=== PATIENT | male | born 1965 | race Hispanic/Latino ===

== ENCOUNTER 2018-11-23 19:13 | Emergency (ER) | payer MEDICAID, SELFPAY ==
--- NOTE | 2018-11-23 | DI.RAD.S_ITS ---
PROCEDURE: XR FEMUR RT 1V INDICATIONS: FALL FROM 30 FEET TECHNIQUE: One views of the femur were acquired. COMPARISON: None. FINDINGS: Bones: Segmented fracture of the proximal right femoral shaft noted. Segmented fracture fragment is displaced anteriorly. Soft tissues: No suspicious soft tissue calcifications or masses. IMPRESSION: Proximal right femoral shaft fracture. Dictated by: Kassy Villalobos MD, PhD on 11/23/2018 at 19:53 Approved by: Kassy Villalobos MD, PhD on 11/23/2018 at 19:54
--- NOTE | 2018-11-23 | DI.RAD.S_ITS ---
PROCEDURE: XR CHEST 1V INDICATIONS: FALL TECHNIQUE: One view of the chest was acquired. COMPARISON: None. FINDINGS: Surgical changes and devices: None. Lungs and pleura: Lungs are clear. No pleural effusions or pneumothorax. Mediastinum: Mediastinal contours appear normal. Heart size is normal. Bones and chest wall: No suspicious bony lesions. Overlying soft tissues appear unremarkable. IMPRESSION: No acute cardiopulmonary disease process. Dictated by: Kassy Villalobos MD, PhD on 11/23/2018 at 19:54 Approved by: Kassy Villalobos MD, PhD on 11/23/2018 at 19:54
--- NOTE | 2018-11-23 | DI.RAD.S_ITS ---
PROCEDURE: XR PELVIS 1-2V INDICATIONS: FALL TECHNIQUE: One view(s) of the pelvis acquired. COMPARISON: None. FINDINGS: Bones: Fracture of the proximal right femoral shaft. Soft tissues: Visualized bowel gas pattern is normal. No suspicious soft tissue calcifications. IMPRESSION: Proximal right femur fracture. Dictated by: Kassy Villalobos MD, PhD on 11/23/2018 at 19:54 Approved by: Kassy Villalobos MD, PhD on 11/23/2018 at 19:55
[2018-11-23] MEDS: fentaNYL 100 MCG/2 ML INJ IV ×2 (19:19→19:52)
[2018-11-23] MEDS: ONDANSETRON 4 MG/2 ML INJ IV (19:19)
--- NOTE | 2018-11-23 19:21 | ED.TRAUMA ---
HPI - Trauma General Chief Complaint: Trauma Stated Complaint: fell 30 ft from roof, R femur fx Time Seen by Provider: 11/23/18 19:18 Source: patient and EMS Mode of arrival: EMS Limitations: language barrier History of Present Illness HPI narrative: 53-year-old male with minimal medical history, Danish speaking, presents by EMS as a modified trauma activation secondary to a fall from 30 ft with an obvious femur fracture. Though Danish-speaking he is able to communicate with EMS and denies any other injuries or pain. He had no loss of consciousness and has had no vomiting. he denies neck back chest or abdomen pain. He denies any numbness or tingling of his foot. The injury is closed and apparently isolated. At no point during evaluation has he had a systolic blood pressure less than 90. He has had no medications prior to arrival. He takes no chronic medications daily. He presents by EMS with C-spine immobilization with blankets as he has a very short thick neck, on a backboard, and cardboard leg splint. He has taken directly into trauma room to where the trauma team is waiting. MD complaint: fall and injury Onset (ago): minute(s) Loss of Consciousness: no Location - Extremities: Right: thigh Severity: severe Context: fall Associated symptoms: denies other symptoms Treatments prior to arrival: IV, oxygen, cervical collar and spinal immobilization Related Data Allergies Allergy/AdvReac Type Severity Reaction Status Date / Time No Known Drug Allergies Allergy Verified 11/23/18 19:23 Review of Systems Review of Systems ROS Unobtainable: All systems reviewed & are unremarkable except as noted in HPI and below Constitutional Denies chills, Denies fever(s), Denies lethargy and Denies weakness Eyes Denies change in vision, Denies eye discharge, Denies irritation and Denies loss of vision ENT Ears, Nose, Mouth, and Throat: Denies change in voice, Denies neck pain and Denies sore throat Cardiovascular Denies chest pain, Denies irregular heart rhythm, Denies lightheadedness, Denies palpitations, Denies dyspnea, Denies dyspnea on exertion and Denies orthopnea Respiratory Denies cough, Denies dyspnea, Denies dyspnea on exertion and Denies wheezing Gastrointestinal Gastrointestinal: Denies abdominal pain, Denies change in bowel habits, Denies diarrhea, Denies nausea and Denies vomiting Genitourinary Denies hematuria, Denies flank pain, Denies urinary incontinence and Denies urinary urgency Musculoskeletal Reports joint swelling, Reports limited range of motion and Denies neck pain Integumentary/Breasts Denies pruritus, Denies erythema, Denies rash and Denies wounds Neurologic Denies confusion, Denies loss of vision and Denies weakness Psychiatric Denies anxiety, Denies confusion, Denies depression, Denies homicidal ideation and Denies suicidal ideation Endocrine Denies palpitations Hematologic/Lymphatic Denies easy bruising Allergic/Immunologic Denies wheezing [facility] Social History Smoking Status: Never smoker Exam Narrative Exam Narrative: GENERAL: 53-year-old male appears younger than stated age, obviously in pain with deformity to right lower extremity. GCS 15, AO x3 HEAD: Mild abrasions to forehead Normocephalic. No temporal or scalp tenderness. EYES: Pupils equal round and reactive. Extraocular motions intact. No scleral icterus. No injection or drainage. ENT: Nose with minimal dried blood, no purulent drainage or septal hematoma. Throat without erythema, tonsillar hypertrophy or exudate. Uvula midline. Airway patent. NECK: Trachea midline. No JVD or lymphadenopathy. Supple, nontender, no meningeal signs. CARDIOVASCULAR: Regular rate and rhythm without murmurs, gallops, or rubs. RESPIRATORY: Clear to auscultation. Breath sounds equal bilaterally. No wheezes, rales, or rhonchi. GASTROINTESTINAL: Abdomen soft, non-tender, nondistended. No hepato-splenomegaly, or palpable masses. No guarding. EXTREMITIES: Obvious deformity to right lower extremity with significant swelling in the right thigh, external rotation. Closed, isolated, neuro intact. Sensation and cap refill intact BACK: Nontender without deformity or crepitance. No flank tenderness. NEURO: AOx3. SKIN: No rash or erythema. Initial Vital Signs Initial Vital Signs: Vital Signs Pulse Rate 80 11/23/18 20:30 Respiratory Rate 23 11/23/18 20:30 Blood Pressure 132/69 11/23/18 20:30 Pulse Oximetry 100 11/23/18 20:30 Procedures Orthopedic Splinting/Casting Injury #1: Side: right Lower Extremity Injury Location: upper leg Lower Extremity Immobilizer: posterior splint (traction splint) Post splinting neuro exam: intact Post splinting vascular exam: intact Placed by: Provider Course Orders Ordered: ED Orders 11/23/18 20:45 Urine Drug Screen, Rapid Stat Discontinued Medications Diphtheria/Tetanus/Acell Pertussis (Adacel) 0.5 ml IM .ONCE ONE Stop: 11/23/18 20:24 Last Admin: 11/23/18 20:24 Dose: 0.5 ml Fentanyl (Sublimaze) 100 mcg IV NOW ONE Stop: 11/23/18 19:20 Last Admin: 11/23/18 19:52 Dose: 100 mcg Fentanyl (Sublimaze) 100 mcg IV NOW ONE Stop: 11/23/18 20:21 Last Admin: 11/23/18 19:19 Dose: 100 mcg Hydromorphone HCl (Dilaudid) 0.5 mg IV NOW ONE Stop: 11/23/18 20:56 Last Admin: 11/23/18 21:00 Dose: 0.5 mg Tranexamic Acid 1,000 mg/ (Sodium Chloride) 100 mls @ 400 mls/hr IV NOW ONE Stop: 11/23/18 19:25 Last Infusion: 11/23/18 20:32 Dose: 0 mls/hr Admin: 11/23/18 20:16 Dose: 400 mls/hr Ondansetron HCl (Zofran) 4 mg IV NOW ONE Stop: 11/23/18 19:20 Last Admin: 11/23/18 19:19 Dose: 4 mg Consultations Consultation #1: call to local ortho, given 30ft fall, complexity of femur, patient is best served at trauma center Consultation #2: call to [facility]. Images pushed. Patient in C Collar, traction splint. Patient has been NPO since 1200. Automatic Packer Operator used to confirm medical history, meds, surgeries, MDM - Trauma Medical Records Attestation: I reviewed the patient's medical records. Lab Data Attestation: I reviewed the patient's lab results. Result diagrams: 11/23/18 19:15 11/23/18 19:15 Lab Results 11/23/18 11/23/18 11/23/18 Range/Units 19:15 19:15 19:44 WBC 22.8 H (4.5-11.0) X10^3/uL RBC 4.63 (4.5-5.9) X10^6/uL Hgb 14.5 (13.5-17.5) g/dL Hct 42.4 (41-53) % MCV 91.6 (80-100) fL MCH 31.4 (26-34) PG MCHC 34.2 (30-36) % RDW 13.2 (11.6-14.8) % Plt Count 265 (150-400) X10^3/uL Neut % (Auto) 78.1 H (50-75) % Lymph % (Auto) 16.8 L (25-40) % [place] % (Auto) 3.8 (3-14) % Eos % (Auto) 1.0 L (2-4) % Baso % (Auto) 0.3 (0-2) % Neut # (Auto) 14878 H (0205-0294) /uL Lymph # (Auto) 3800 (4837-9319) /uL [place] # (Auto) 900 (0-900) /uL Eos # (Auto) 200 (0-450) /uL Baso # (Auto) 100 (0-100) /uL Sodium 139 (137-145) mmol/L Potassium 3.1 L (3.4-5.1) mmol/L Chloride 101 (98-107) mmol/L Carbon Dioxide 26 (22-32) mmol/L BUN 20 (9-20) mg/dL Creatinine 0.90 (0.66-1.25) mg/dL Estimated GFR > 60.0 (>60) mL/min BUN/Creatinine Ratio 22.2 H (6-22) Glucose 245 H (70-100) mg/dL Calcium 8.9 (8.4-10.2) mg/dL Total Bilirubin 0.7 (0.2-1.3) mg/dL AST 72 H (17-59) IU/L ALT 53 (21-72) IU/L Alkaline Phosphatase 95 (38-126) U/L Total Creatine Kinase 548 H (55-170) U/L CK-MB (CK-2) 7.84 H (<2.37) ng/mL CK-MB (CK-2) Rel Index 1.4 L (1.5-5.0) % Troponin I < 0.012 (0.01-0.034) ng/mL Total Protein 7.0 (6.3-8.2) g/dL Albumin 4.2 (3.5-5.0) g/dL Globulin 2.8 (1.7-4.1) g/dL Albumin/Globulin Ratio 1.5 (1.0-2.8) Lipase 85 (23-300) U/L Urine Opiates Screen (Negative) Ur Oxycodone Screen (Negative) Urine Methadone Screen (Negative) Ur Barbiturates Screen (Negative) U Tricyclic Antidepress (Negative) Ur Phencyclidine Scrn (Negative) Ur Amphetamines Screen (Negative) U Methamphetamines Scrn (Negative) Ur MDMA Scrn (Ecstasy) (Negative) U Benzodiazepines Scrn (Negative) Urine Cocaine Screen (Negative) U Marijuana (THC) Screen (Negative) Ethyl Alcohol < 10 mg/dL Blood Type O Positive Antibody Screen Negative 11/23/18 Range/Units 20:45 WBC (4.5-11.0) X10^3/uL RBC (4.5-5.9) X10^6/uL Hgb (13.5-17.5) g/dL Hct (41-53) % MCV (80-100) fL MCH (26-34) PG MCHC (30-36) % RDW (11.6-14.8) % Plt Count (150-400) X10^3/uL Neut % (Auto) (50-75) % Lymph % (Auto) (25-40) % [place] % (Auto) (3-14) % Eos % (Auto) (2-4) % Baso % (Auto) (0-2) % Neut # (Auto) (3329-7398) /uL Lymph # (Auto) (6621-6620) /uL [place] # (Auto) (0-900) /uL Eos # (Auto) (0-450) /uL Baso # (Auto) (0-100) /uL Sodium (137-145) mmol/L Potassium (3.4-5.1) mmol/L Chloride (98-107) mmol/L Carbon Dioxide (22-32) mmol/L BUN (9-20) mg/dL Creatinine (0.66-1.25) mg/dL Estimated GFR (>60) mL/min BUN/Creatinine Ratio (6-22) Glucose (70-100) mg/dL Calcium (8.4-10.2) mg/dL Total Bilirubin (0.2-1.3) mg/dL AST (17-59) IU/L ALT (21-72) IU/L Alkaline Phosphatase (38-126) U/L Total Creatine Kinase (55-170) U/L CK-MB (CK-2) (<2.37) ng/mL CK-MB (CK-2) Rel Index (1.5-5.0) % Troponin I (0.01-0.034) ng/mL Total Protein (6.3-8.2) g/dL Albumin (3.5-5.0) g/dL Globulin (1.7-4.1) g/dL Albumin/Globulin Ratio (1.0-2.8) Lipase (23-300) U/L Urine Opiates Screen Negative (Negative) Ur Oxycodone Screen Negative (Negative) Urine Methadone Screen Negative (Negative) Ur Barbiturates Screen Negative (Negative) U Tricyclic Antidepress Negative (Negative) Ur Phencyclidine Scrn Negative (Negative) Ur Amphetamines Screen Negative (Negative) U Methamphetamines Scrn Negative (Negative) Ur MDMA Scrn (Ecstasy) Negative (Negative) U Benzodiazepines Scrn Negative (Negative) Urine Cocaine Screen Negative (Negative) U Marijuana (THC) Screen Negative (Negative) Ethyl Alcohol mg/dL Blood Type Antibody Screen Imaging Data CT scan - head: Radiologist's impression: PROCEDURE: CT HEAD/BRAIN WO CON INDICATIONS: trauma TECHNIQUE: Noncontrast 4.5 mm thick angled axial sections acquired from the foramen magnum to the vertex, with coronal and sagittal reformats. For radiation dose reduction, the following was used: automated exposure control, adjustment of mA and/or kV according to patient size. COMPARISON: None. FINDINGS: Image quality: Excellent. CSF spaces: Basal cisterns are patent. No extra-axial fluid collections. Ventricles are normal in size and shape. Brain: No midline shift. No intracranial masses or hemorrhage. [place]-white matter interface is normal. Skull and face: Calvarium and visualized facial bones are intact, without suspicious lesions. Sinuses: Mild mucosal thickening in the visualized right maxillary sinus. Small left maxillary sinus mucus retention cyst versus polyp is partially visualized. mastoids are clear. IMPRESSION: No acute intracranial disease process. Dictated by: Kassy Villalobos MD, PhD on 11/23/2018 at 20:08 Approved by: Kassy Villalobos MD, PhD on 11/23/2018 at 20:[address] [address] [address] Scan Report Signed Patient: Kuldeep Lyman#: [id number] : 1965Acct:[id number] Age/Sex: 53 / MDate of Service: 11/23/18 Loc: ED Accession Number: [id number] Procedure: CT cervical spine wo con Ordering Provider: Raul Gentile D.O. PROCEDURE: CT CERVICAL SPINE WO CON INDICATIONS: fall from 30ft TECHNIQUE: Noncontrast 3 mm thick sections acquired from the skull base to the T4 level. Sagittal and coronal reformats were then constructed. For radiation dose reduction, the following was used: automated exposure control, adjustment of mA and/or kV according to patient size. COMPARISON: None. FINDINGS: Image quality: Excellent. Bones: No fractures or dislocations. Visualized superior ribs are intact. Spine degenerative disease and facet arthropathy noted. Soft tissues: Prevertebral soft tissues are normal in thickness. No paravertebral hematomas. No apical pneumothoraces. IMPRESSION: No fracture. No acute osseous lesion. If there are persistent symptoms or continued clinical suspicion for pathology, then MRI should be considered for further evaluation. Dictated by: Kassy Villalobos MD, PhD on 11/23/2018 at 19:55 Approved by: Kassy Villalobos MD, PhD on 11/23/2018 at 19:[address] [address] [address] Scan Report Signed Patient: Kuldeep Lyman#: [id number] : 1965Acct:[id number] Age/Sex: 53 / MDate of Service: 11/23/18 Loc: ED Accession Number: [id number] Procedure: CT chest abd pel w con Ordering Provider: Raul Gentile D.O. PROCEDURE: CT CHEST ABD PEL W CON INDICATIONS: fall from 30ft. distracting injury TECHNIQUE: After the administration of intravenous contrast, 5 mm thick sections acquired from the lung apices to the symphysis. 2.5 mm thick coronal and sagittal reformats were acquired. Additional 7 mm thick coronal maximum intensity projection (MIP) reformats acquired through the lungs. Optional 10-minute delayed imaging may be performed from the kidneys to the bladder. For radiation dose reduction, the following was used: automated exposure control, adjustment of mA and/or kV according to patient size. COMPARISON: None. FINDINGS: Image quality: Excellent. CHEST: Lungs: No pulmonary contusions or lacerations. No acute airspace opacities. No pneumothorax or hemothorax. Central and peripheral airways appear patent and normal in caliber. Mediastinum: No mediastinal hematomas. Heart size is normal. No pericardial effusion. Thoracic aorta and pulmonary arteries demonstrate normal size and enhancement. No mediastinal or hilar adenopathy. Esophagus is normal in caliber. No hiatal hernia. Chest wall: No rib fractures. No subcutaneous emphysema. No axillary or supraclavicular adenopathy. ABDOMEN: Solid organs: Liver is normal in size and enhancement, without lacerations. Diffuse fatty infiltration the liver is noted. Rounded calcification noted in the posterior right lobe liver. Gallbladder contains small gallstones. Biliary system is non-dilated. Pancreas enhances normally, without transection. Spleen is normal in size and enhancement, without lacerations. No adrenal hematomas. Both kidneys enhance normally, without hydronephrosis or lacerations. Peritoneum and bowel: No free fluid or air. Unenhanced bowel loops demonstrate normal wall thickness and caliber. Nodes and vessels: No retroperitoneal or mesenteric adenopathy. Aorta and inferior vena cava are normal in size and enhancement. Miscellaneous: No ventral hernias. PELVIS: Genitourinary: Bladder wall thickness is normal. Miscellaneous: No inguinal hernias or adenopathy. Bones: Comminuted fracture of the proximal shaft of the right femur is noted. Hematoma in the right thigh adjacent to right femur fracture. Pelvic ring and hip joints appear intact. No vertebral compression fractures. IMPRESSION: 1. Comminuted proximal right femur fracture. 2. No solid organ laceration. 3. No pneumothorax. 3. No free intraperitoneal fluid or air. Dictated by: Kassy Villalobos MD, PhD on 11/23/2018 at 19:59 Approved by: Kassy Villalobos MD, PhD on 11/23/2018 at 20:[address] [address] XRay Report Signed Patient: Kuldeep Lyman#: [id number] : 1965Acct:[id number] Age/Sex: 53 / MDate of Service: 11/23/18 Loc: ED Accession Number: [id number] Procedure: XR chest 1V Ordering Provider: Raul Gentile D.O. PROCEDURE: XR CHEST 1V INDICATIONS: FALL TECHNIQUE: One view of the chest was acquired. COMPARISON: None. FINDINGS: Surgical changes and devices: None. Lungs and pleura: Lungs are clear. No pleural effusions or pneumothorax. Mediastinum: Mediastinal contours appear normal. Heart size is normal. Bones and chest wall: No suspicious bony lesions. Overlying soft tissues appear unremarkable. IMPRESSION: No acute cardiopulmonary disease process. Dictated by: Kassy Villalobos MD, PhD on 11/23/2018 at 19:54 Approved by: Kassy Villalobos MD, PhD on 11/23/2018 at 19:[address] [address] XRay Report Signed Patient: Kuldeep Lyman#: [id number] : 1965Acct:[id number] Age/Sex: 53 / MDate of Service: 11/23/18 Loc: ED Accession Number: [id number] Procedure: XR pelvis 1-2V Ordering Provider: Raul Gentile D.O. PROCEDURE: XR PELVIS 1-2V INDICATIONS: FALL TECHNIQUE: One view(s) of the pelvis acquired. COMPARISON: None. FINDINGS: Bones: Fracture of the proximal right femoral shaft. Soft tissues: Visualized bowel gas pattern is normal. No suspicious soft tissue calcifications. IMPRESSION: Proximal right femur fracture. Dictated by: Kassy Villalobos MD, PhD on 11/23/2018 at 19:54 Approved by: Kassy Villalobos MD, PhD on 11/23/2018 at 19:[address] [address] XRay Report Signed Patient: Kuldeep Lyman#: [id number] : 1965Acct:[id number] Age/Sex: 53 / MDate of Service: 11/23/18 Loc: ED Accession Number: [id number] Procedure: XR femur RT 1V Ordering Provider: Raul Gentile D.O. PROCEDURE: XR FEMUR RT 1V INDICATIONS: FALL FROM 30 FEET TECHNIQUE: One views of the femur were acquired. COMPARISON: None. FINDINGS: Bones: Segmented fracture of the proximal right femoral shaft noted. Segmented fracture fragment is displaced anteriorly. Soft tissues: No suspicious soft tissue calcifications or masses. IMPRESSION: Proximal right femoral shaft fracture. Dictated by: Kassy Villalobos MD, PhD on 11/23/2018 at 19:53 Approved by: Kassy Villalobos MD, PhD on 11/23/2018 at 19:54 Critical Care Time Critical Care Time: Yes Total Critical Care Time: 30 Attestation: The high probability of a clinically significant, sudden or life threatening deterioration of the [cardiovascular] system(s) required my full and direct attention, intervention and personal management. The aggregate critical care time was [30] minutes. This time is in addition to time spent performing reported procedures but includes the following: [x] Data Review and interpretation [x] Patient assessment and monitoring of vital signs [x] Documentation [x] Medication orders and management Discharge Plan Departure Patient Disposition: [facility] Clinical Impression: Trauma, Acute hypokalemia Comminuted fracture of shaft of femur Qualifiers: Encounter type: initial encounter Fracture type: closed Fracture alignment: displaced Laterality: right Qualified Code(s): S72.351A - Displaced comminuted fracture of shaft of right femur, initial encounter for closed fracture Discharge Date/Time: 11/23/18 21:30 Interventions: ED Discharge Assessment Last Done: 11/23/18 21:53
[2018-11-23 19:23] VITALS: BMI 44.1
--- NOTE | 2018-11-23 19:24 | ED_ITS ---
HPI - Trauma General Chief Complaint: Trauma Stated Complaint: fell 30 ft from roof, R femur fx Time Seen by Provider: 11/23/18 19:18 Source: patient and EMS Mode of arrival: EMS Limitations: language barrier History of Present Illness HPI narrative: 53-year-old male with minimal medical history, Algerian speaking, presents by EMS as a modified trauma activation secondary to a fall from 30 ft with an obvious femur fracture. Though Algerian-speaking he is able to communicate with EMS and denies any other injuries or pain. He had no loss of consciousness and has had no vomiting. he denies neck back chest or abdomen pain. He denies any numbness or tingling of his foot. The injury is closed and apparently isolated. At no point during evaluation has he had a systolic blood pressure less than 90. He has had no medications prior to arrival. He takes no chronic medications daily. He presents by EMS with C-spine immobilization with blankets as he has a very short thick neck, on a backboard, and cardboard leg splint. He has taken directly into trauma room to where the trauma team is waiting. MD complaint: fall and injury Onset (ago): minute(s) Loss of Consciousness: no Location - Extremities: Right: thigh Severity: severe Context: fall Associated symptoms: denies other symptoms Treatments prior to arrival: IV, oxygen, cervical collar and spinal immobilization Related Data Allergies Allergy/AdvReac Type Severity Reaction Status Date / Time No Known Drug Allergies Allergy Verified 11/23/18 19:23 Review of Systems Review of Systems ROS Unobtainable: All systems reviewed & are unremarkable except as noted in HPI and below Constitutional Denies chills, Denies fever(s), Denies lethargy and Denies weakness Eyes Denies change in vision, Denies eye discharge, Denies irritation and Denies loss of vision ENT Ears, Nose, Mouth, and Throat: Denies change in voice, Denies neck pain and D enies sore throat Cardiovascular Denies chest pain, Denies irregular heart rhythm, Denies lightheadedness, Denies palpitations, Denies dyspnea, Denies dyspnea on exertion and Denies orthopnea Respiratory Denies cough, Denies dyspnea, Denies dyspnea on exertion and Denies wheezing Gastrointestinal Gastrointestinal: Denies abdominal pain, Denies change in bowel habits, Denies diarrhea, Denies nausea and Denies vomiting Genitourinary Denies hematuria, Denies flank pain, Denies urinary incontinence and Denies urinary urgency Musculoskeletal Reports joint swelling, Reports limited range of motion and Denies neck pain Integumentary/Breasts Denies pruritus, Denies erythema, Denies rash and Denies wounds Neurologic Denies confusion, Denies loss of vision and Denies weakness Psychiatric Denies anxiety, Denies confusion, Denies depression, Denies homicidal ideation and Denies suicidal ideation Endocrine Denies palpitations Hematologic/Lymphatic Denies easy bruising Allergic/Immunologic Denies wheezing [facility] Social History Smoking Status: Never smoker Exam Narrative Exam Narrative: GENERAL: 53-year-old male appears younger than stated age, obviously in pain with deformity to right lower extremity. GCS 15, AO x3 HEAD: Mild abrasions to forehead Normocephalic. No temporal or scalp tenderness. EYES: Pupils equal round and reactive. Extraocular motions intact. No scleral icterus. No injection or drainage. ENT: Nose with minimal dried blood, no purulent drainage or septal hematoma. Throat without erythema, tonsillar hypertrophy or exudate. Uvula midline. Airway patent. NECK: Trachea midline. No JVD or lymphadenopathy. Supple, nontender, no meningeal signs. CARDIOVASCULAR: Regular rate and rhythm without murmurs, gallops, or rubs. RESPIRATORY: Clear to auscultation. Breath sounds equal bilaterally. No wheezes, rales, or rhonchi. GASTROINTESTINAL: Abdomen soft, non-tender, nondistended. No hepato- splenomegaly, or palpable masses. No guarding. EXTREMITIES: Obvious deformity to right lower extremity with significant sw elling in the right thigh, external rotation. Closed, isolated, neuro intact. Sensation and cap refill intact BACK: Nontender without deformity or crepitance. No flank tenderness. NEURO: AOx3. SKIN: No rash or erythema. Initial Vital Signs Initial Vital Signs: Vital Signs Pulse Rate 80 11/23/18 20:30 Respiratory Rate 23 11/23/18 20:30 Blood Pressure 132/69 11/23/18 20:30 Pulse Oximetry 100 11/23/18 20:30 Procedures Orthopedic Splinting/Casting Injury #1: Side: right Lower Extremity Injury Location: upper leg Lower Extremity Immobilizer: posterior splint (traction splint) Post splinting neuro exam: intact Post splinting vascular exam: intact Placed by: Provider Course Orders Ordered: ED Orders 11/23/18 20:45 Urine Drug Screen, Rapid Stat Discontinued Medications Diphtheria/Tetanus/Acell Pertussis (Adacel) 0.5 ml IM .ONCE ONE Stop: 11/23/18 20:24 Last Admin: 11/23/18 20:24 Dose: 0.5 ml Fentanyl (Sublimaze) 100 mcg IV NOW ONE Stop: 11/23/18 19:20 Last Admin: 11/23/18 19:52 Dose: 100 mcg Fentanyl (Sublimaze) 100 mcg IV NOW ONE Stop: 11/23/18 20:21 Last Admin: 11/23/18 19:19 Dose: 100 mcg Hydromorphone HCl (Dilaudid) 0.5 mg IV NOW ONE Stop: 11/23/18 20:56 Last Admin: 11/23/18 21:00 Dose: 0.5 mg Tranexamic Acid 1,000 mg/ (Sodium Chloride) 100 mls @ 400 mls/hr IV NOW ONE Stop: 11/23/18 19:25 Last Infusion: 11/23/18 20:32 Dose: 0 mls/hr Admin: 11/23/18 20:16 Dose: 400 mls/hr Ondansetron HCl (Zofran) 4 mg IV NOW ONE Stop: 11/23/18 19:20 Last Admin: 11/23/18 19:19 Dose: 4 mg Consultations Consultation #1: call to local ortho, given 30ft fall, complexity of femur, patient is best served at trauma center Consultation #2: call to [facility] [place] pushed. Patient in C Collar, traction splint. Patient has been NPO since 1200. 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 Lab Data Attestation: I reviewed the patient's lab results. Result diagrams: 11/23/18 19:15 11/23/18 19:15 Lab Results 11/23/18 11/23/18 11/23/18 Range/Units 19:15 19:15 19:44 WBC 22.8 H (4.5-11.0) X10^3/uL RBC 4.63 (4.5-5.9) X10^6/uL Hgb 14.5 (13.5-17.5) g/dL Hct 42.4 (41-53) % MCV 91.6 (80-100) fL MCH 31.4 (26-34) PG MCHC 34.2 (30-36) % RDW 13.2 (11.6-14.8) % Plt Count 265 (150-400) X10^3/uL Neut % (Auto) 78.1 H (50-75) % Lymph % (Auto) 16.8 L (25-40) % Rusk % (Auto) 3.8 (3-14) % Eos % (Auto) 1.0 L (2-4) % Baso % (Auto) 0.3 (0-2) % Neut # (Auto) 72292 H (5709-6101) /uL Lymph # (Auto) 3800 (9748-9049) /uL Rusk # (Auto) 900 (0-900) /uL Eos # (Auto) 200 (0-450) /uL Baso # (Auto) 100 (0-100) /uL Sodium 139 (137-145) mmol/L Potassium 3.1 L (3.4-5.1) mmol/L Chloride 101 (98-107) mmol/L Carbon Dioxide 26 (22-32) mmol/L BUN 20 (9-20) mg/dL Creatinine 0.90 (0.66-1.25) mg/dL Estimated GFR > 60.0 (>60) mL/min BUN/Creatinine Ratio 22.2 H (6-22) Glucose 245 H (70-100) mg/dL Calcium 8.9 (8.4-10.2) mg/dL Total Bilirubin 0.7 (0.2-1.3) mg/dL AST 72 H (17-59) IU/L ALT 53 (21-72) IU/L Alkaline Phosphatase 95 (38-126) U/L Total Creatine Kinase 548 H (55-170) U/L CK-MB (CK-2) 7.84 H (<2.37) ng/mL CK-MB (CK-2) Rel Index 1.4 L (1.5-5.0) % Troponin I < 0.012 (0.01-0.034) ng/mL Total Protein 7.0 (6.3-8.2) g/dL Albumin 4.2 (3.5-5.0) g/dL Globulin 2.8 (1.7-4.1) g/dL Albumin/Globulin Ratio 1.5 (1.0-2.8) Lipase 85 (23-300) U/L Urine Opiates Screen (Negative) Ur Oxycodone Screen (Negative) Urine Methadone Screen (Negative) Ur Barbiturates Screen (Negative) U Tricyclic Antidepress (Negative) Ur Phencyclidine Scrn (Negative) Ur Amphetamines Screen (Negative) U Methamphetamines Scrn (Negative) Ur MDMA Scrn (Ecstasy) (Negative) U Benzodiazepines Scrn (Negative) Urine Cocaine Screen (Negative) U Marijuana (THC) Screen (Negative) Ethyl Alcohol < 10 mg/dL Blood Type O Positive Antibody Screen Negative 11/23/18 Range/Units 20:45 WBC (4.5-11.0) X10^3/uL RBC (4.5-5.9) X10^6/uL Hgb (13.5-17.5) g/dL Hct (41-53) % MCV (80-100) fL MCH (26-34) PG MCHC (30-36) % RDW (11.6-14.8) % Plt Count (150-400) X10^3/uL Neut % (Auto) (50-75) % Lymph % (Auto) (25-40) % Rusk % (Auto) (3-14) % Eos % (Auto) (2-4) % Baso % (Auto) (0-2) % Neut # (Auto) (9844-7991) /uL Lymph # (Auto) (9930-9527) /uL Rusk # (Auto) (0-900) /uL Eos # (Auto) (0-450) /uL Baso # (Auto) (0-100) /uL Sodium (137-145) mmol/L Potassium (3.4-5.1) mmol/L Chloride (98-107) mmol/L Carbon Dioxide (22-32) mmol/L BUN (9-20) mg/dL Creatinine (0.66-1.25) mg/dL Estimated GFR (>60) mL/min BUN/Creatinine Ratio (6-22) Glucose (70-100) mg/dL Calcium (8.4-10.2) mg/dL Total Bilirubin (0.2-1.3) mg/dL AST (17-59) IU/L ALT (21-72) IU/L Alkaline Phosphatase (38-126) U/L Total Creatine Kinase (55-170) U/L CK-MB (CK-2) (<2.37) ng/mL CK-MB (CK-2) Rel Index (1.5-5.0) % Troponin I (0.01-0.034) ng/mL Total Protein (6.3-8.2) g/dL Albumin (3.5-5.0) g/dL Globulin (1.7-4.1) g/dL Albumin/Globulin Ratio (1.0-2.8) Lipase (23-300) U/L Urine Opiates Screen Negative (Negative) Ur Oxycodone Screen Negative (Negative) Urine Methadone Screen Negative (Negative) Ur Barbiturates Screen Negative (Negative) U Tricyclic Antidepress Negative (Negative) Ur Phencyclidine Scrn Negative (Negative) Ur Amphetamines Screen Negative (Negative) U Methamphetamines Scrn Negative (Negative) Ur MDMA Scrn (Ecstasy) Negative (Negative) U Benzodiazepines Scrn Negative (Negative) Urine Cocaine Screen Negative (Negative) U Marijuana (THC) Screen Negative (Negative) Ethyl Alcohol mg/dL Blood Type Antibody Screen Imaging Data CT scan - head: Radiologist's impression: PROCEDURE: CT HEAD/BRAIN WO CON INDICATIONS: trauma TECHNIQUE: Noncontrast 4.5 mm thick angled axial sections acquired from the foramen magnum to the vertex, with coronal and sagittal reformats. For radiation dose reduction, the following was used: automated exposure control, adjustment of mA and/or kV according to patient size. COMPARISON: None. FINDINGS: Image quality: Excellent. CSF spaces: Basal cisterns are patent. No extra-axial fluid collections. Ventricles are normal in size and shape. Brain: No midline shift. No intracranial masses or hemorrhage. Costa-white matter interface is normal. Skull and face: Calvarium and visualized facial bones are intact, without suspicious lesions. Sinuses: Mild mucosal thickening in the visualized right maxillary sinus. Small left maxillary sinus mucus retention cyst versus polyp is partially visualized. mastoids are clear. IMPRESSION: No acute intracranial disease process. Dictated by: Kassy Villalobos MD, PhD on 11/23/2018 at 20:08 Approved by: Kassy Villalobos MD, PhD on 11/23/2018 at 20:[address] [address] [address] Scan Report Signed Patient: Zee LymanR#: [id number] : 1965Acct:[id number] Age/Sex: 53 / MDate of Service: 11/23/18 Loc: ED Accession Number: [id number] Procedure: CT cervical spine wo con Ordering Provider: Raul Gentile D.O. PROCEDURE: CT CERVICAL SPINE WO CON INDICATIONS: fall from 30ft TECHNIQUE: Noncontrast 3 mm thick sections acquired from the skull base to the T4 level. Sagittal and coronal reformats were then constructed. For radiation dose reduction, the following was used: automated exposure control, adjustment of mA and/or kV according to patient size. COMPARISON: None. FINDINGS: Image quality: Excellent. Bones: No fractures or dislocations. Visualized superior ribs are intact. Spine degenerative disease and facet arthropathy noted. Soft tissues: Prevertebral soft tissues are normal in thickness. No paravertebral hematomas. No apical pneumothoraces. IMPRESSION: No fracture. No acute osseous lesion. If there are persistent symptoms or continued clinical suspicion for pathology, then MRI should be considered for further evaluation. Dictated by: Kassy Villalobos MD, PhD on 11/23/2018 at 19:55 Approved by: Kassy Villalobos MD, PhD on 11/23/2018 at 19:[address] [address] [address] Scan Report Signed Patient: Kuldeep Lyman#: [id number] : 1965Acct:[id number] Age/Sex: 53 / MDate of Service: 11/23/18 Loc: ED Accession Number: [id number] Procedure: CT chest abd pel w con Ordering Provider: Raul Gentile D.O. PROCEDURE: CT CHEST ABD PEL W CON INDICATIONS: fall from 30ft. distracting injury TECHNIQUE: After the administration of intravenous contrast, 5 mm thick sections acquired from the lung apices to the symphysis. 2.5 mm thick coronal and sagittal reformats were acquired. Additional 7 mm thick coronal maximum intensity projection (MIP) reformats acquired through the lungs. Optional 10-minute delayed imaging may be performed from the kidneys to the bladder. For radiation dose reduction, the following was used: automated exposure control, adjustment of mA and/or kV according to patient size. COMPARISON: None. FINDINGS: Image quality: Excellent. CHEST: Lungs: No pulmonary contusions or lacerations. No acute airspace opacities. No pneumothorax or hemothorax. Central and peripheral airways appear patent and normal in caliber. Mediastinum: No mediastinal hematomas. Heart size is normal. No pericardial effusion. Thoracic aorta and pulmonary arteries demonstrate normal size and enhancement. No mediastinal or hilar adenopathy. Esophagus is normal in caliber. No hiatal hernia. Chest wall: No rib fractures. No subcutaneous emphysema. No axillary or supraclavicular adenopathy. ABDOMEN: Solid organs: Liver is normal in size and enhancement, without lacerations. Diffuse fatty infiltration the liver is noted. Rounded calcification noted in the posterior right lobe liver. Gallbladder contains small gallstones. Biliary system is non-dilated. Pancreas enhances normally, without transection. Spleen is normal in size and enhancement, without lacerations. No adrenal hematomas. Both kidneys enhance n ormally, without hydronephrosis or lacerations. Peritoneum and bowel: No free fluid or air. Unenhanced bowel loops demonstrate normal wall thickness and caliber. Nodes and vessels: No retroperitoneal or mesenteric adenopathy. Aorta and inferior vena cava are normal in size and enhancement. Miscellaneous: No ventral hernias. PELVIS: Genitourinary: Bladder wall thickness is normal. Miscellaneous: No inguinal hernias or adenopathy. Bones: Comminuted fracture of the proximal shaft of the right femur is noted. Hematoma in the right thigh adjacent to right femur fracture. Pelvic ring and hip joints appear intact. No vertebral compression fractures. IMPRESSION: 1. Comminuted proximal right femur fracture. 2. No solid organ laceration. 3. No pneumothorax. 3. No free intraperitoneal fluid or air. Dictated by: Kassy Villalobos MD, PhD on 11/23/2018 at 19:59 Approved by: Kassy Villalobos MD, PhD on 11/23/2018 at 20:[address] [address] XRay Report Signed Patient: Kuldeep Lyman#: [id number] : 1965Acct:[id number] Age/Sex: 53 / MDate of Service: 11/23/18 Loc: ED Accession Number: [id number] Procedure: XR chest 1V Ordering Provider: Raul Gentile D.O. PROCEDURE: XR CHEST 1V INDICATIONS: FALL TECHNIQUE: One view of the chest was acquired. COMPARISON: None. FINDINGS: Surgical changes and devices: None. Lungs and pleura: Lungs are clear. No pleural effusions or pneumothorax. Mediastinum: Mediastinal contours appear normal. Heart size is normal. Bones and chest wall: No suspicious bony lesions. Overlying soft tissues appear unremarkable. IMPRESSION: No acute cardiopulmonary disease process. Dictated by: Kassy Villalobos MD, PhD on 11/23/2018 at 19:54 Approved by: Kassy Villalobos MD, PhD on 11/23/2018 at 19:54 [place] [address] XRay Report Signed Patient: Zee LymanR#: [id number] : 1965Acct:[id number] Age/Sex: 53 / MDate of Service: 11/23/18 Loc: ED Accession Number: [id number] Procedure: XR pelvis 1-2V Ordering Provider: Raul Gentile D.O. PROCEDURE: XR PELVIS 1-2V INDICATIONS: FALL TECHNIQUE: One view(s) of the pelvis acquired. COMPARISON: None. FINDINGS: Bones: Fracture of the proximal right femoral shaft. Soft tissues: Visualized bowel gas pattern is normal. No suspicious soft tissue calcifications. IMPRESSION: Proximal right femur fracture. Dictated by: Kassy Villalobos MD, PhD on 11/23/2018 at 19:54 Approved by: Kassy Villalobos MD, PhD on 11/23/2018 at 19:[address] [address] XRay Report Signed Patient: Zee LymanR#: [id number] : 1965Acct:[id number] Age/Sex: 53 / MDate of Service: 11/23/18 Loc: ED Accession Number: [id number] Procedure: XR femur RT 1V Ordering Provider: Raul Gentile D.O. PROCEDURE: XR FEMUR RT 1V INDICATIONS: FALL FROM 30 FEET TECHNIQUE: One views of the femur were acquired. COMPARISON: None. FINDINGS: Bones: Segmented fracture of the proximal right femoral shaft noted. Segmented fracture fragment is displaced anteriorly. Soft tissues: No suspicious soft tissue calcifications or masses. IMPRESSION: Proximal right femoral shaft fracture. Dictated by: Kassy Villalobos MD, PhD on 11/23/2018 at 19:53 Approved by: Kassy Villalobos MD, PhD on 11/23/2018 at 19:54 Critical Care Time Critical Care Time: Yes Total Critical Care Time: 30 Attestation: The high probability of a clinically significant, sudden or life threatening deterioration of the [cardiovascular] system(s) required my full and direct attention, intervention and personal management. The aggregate critical care time was [30] minutes. This time is in addition to time spent performing reported procedures but includes the following: [x] Data Review and interpretation [x] Patient assessment and monitoring of vital signs [x] Documentation [x] Medication orders and management Discharge Plan Departure Patient Disposition: General Acute Hospital Clinical Impression: Trauma, Acute hypokalemia Comminuted fracture of shaft of femur Qualifiers: Encounter type: initial encounter Fracture type: closed Fracture alignment: displaced Laterality: right Qualified Code(s): S72.351A - Displaced comminuted fracture of shaft of right femur, initial encounter for closed fracture Discharge Date/Time: 11/23/18 21:30 Interventions: ED Discharge Assessment Last Done: 11/23/18 21:53
[2018-11-23 19:28] LABS: Add Manual Diff / Slide Review NO; Basophils Absolute Auto 100 /uL (0-100); Basophils Percent Auto 0.3 % (0-2); Eosinophils Absolute Auto 200 /uL (0-450); Hematocrit 42.4 % (41-53); Hemoglobin 14.5 g/dL (13.5-17.5); Lymphocytes Absolute Auto 3800 /uL (1100-4500); Lymphocytes Percent Auto 16.8 % (25-40); Mean Corpuscular HGB Conc 34.2 % (30-36); Mean Corpuscular Hemoglobin 31.4 PG (26-34); Mean Corpuscular Volume 91.6 fL (80-100); Monocytes Absolute Auto 900 /uL (0-900); Monocytes Percent Auto 3.8 % (3-14); Neutrophils Absolute Auto 17800 /uL (1500-7000); Neutrophils Percent Auto 78.1 % (50-75); Platelet Count 265 X10^3/uL (150-400); Red Blood Cell Count 4.63 X10^6/uL (4.5-5.9); Red Cell Distribution Width 13.2 % (11.6-14.8); White Blood Cell Count 22.8 X10^3/uL (4.5-11.0)
[2018-11-23 19:42] LABS: Alanine Aminotransferase 53 IU/L (21-72); Albumin 4.2 g/dL (3.5-5.0); Albumin Globulin Ratio 1.5 (1.0-2.8); Alkaline Phosphatase 95 U/L (38-126); Aspartate Aminotransferase 72 IU/L (17-59); BUN Creatinine Ratio 22.2 (6-22); Bilirubin Total 0.7 mg/dL (0.2-1.3); Blood Urea Nitrogen 20 mg/dL (9-20); Calcium 8.9 mg/dL (8.4-10.2); Carbon Dioxide 26 mmol/L (22-32); Chloride 101 mmol/L (98-107); Creatine Kinase 548 U/L (55-170); Estimated Glomerular Filt Rate > 60.0 mL/min (>60); Globulin 2.8 g/dL (1.7-4.1); Glucose 245 mg/dL (70-100); Lipase 85 U/L (23-300); Potassium 3.1 mmol/L (3.4-5.1); Sodium 139 mmol/L (137-145)
[2018-11-23 19:51] LABS: HEMOLYSIS 61 (0-50)
[2018-11-23 19:54] LABS: Troponin I < 0.012 ng/mL (0.01-0.034)
[2018-11-23 19:56] LABS: Ethanol (ETOH) < 10 mg/dL
[2018-11-23 20:05] LABS: CKMB % Relative Index 1.4 % (1.5-5.0); Creatine Kinase MB 7.84 ng/mL (<2.37)
[2018-11-23] MEDS: TRANEXAMIC ACID 1,000 MG in SODIUM CHLORIDE 0.9% 100 ML 400 ML IV (20:16)
[2018-11-23] MEDS: TET,DIPH,PERTUSS(ACELL),VAC/PF 0.5 ML SYRINGE IM (20:24)
[2018-11-23 20:30] VITALS: BP 132/69; PULSE 80; RESP 23; O2SAT 100
[2018-11-23] MEDS: HYDROMORPHONE 1 MG INJ 0.5 MG IV (21:00)
[2018-11-23 21:15] LABS: Urine Amphetamines Negative (Negative); Urine Barbiturates Negative (Negative); Urine Benzodiazepines Negative (Negative); Urine Cocaine Negative (Negative); Urine MDMA Negative (Negative); Urine Methadone Negative (Negative); Urine Methamphetamines Negative (Negative); Urine Morphine/Opi cutoff 2000 Negative (Negative); Urine Oxycodone Negative (Negative); Urine Phencyclidine Negative (Negative); Urine Tetrahydrocannabinol Negative (Negative); Urine Tricyclic Antidepressant Negative (Negative)
== END 2018-11-23 21:30 | disposition short-term general hospital (02) ==
PROVIDERS: Emergency Provider Emergency Medicine
DX: S72.351A Displaced comminuted fracture of shaft of right femur, initial encounter for closed fracture (principal); E87.6 Hypokalemia; W13.2XXA Fall from, out of or through roof, initial encounter
CPT/HCPCS: 70450; 71045; 71260; 72125; 72170; 73551; 74177; 80053; 80305; 80320; 82550; 82553; 83690; 84484; 85025; 86850; 86900; 86901; 90471; 93005; 93010; 96365; 96375; 96376; 99283; 99291; 99292; 90715; G0390; J1170; J2405; J3010; Q9967